=== PATIENT | male | born 1995 | race Caucasian/White ===

== ENCOUNTER 2021-09-27 22:27 | Emergency (ER) | payer OTHER ==
[~2021-09-27] VITALS: Ht 180.3 cm; Wt 72.6 kg
--- NOTE | 2021-09-27 23:09 | NUR ---
Dr Vogel at bedside, MSE in progress.
[2021-09-27 23:32] LABS: HEMATOCRIT 38.4 % (36.7-47.1); MEAN CORPUSCULAR HEMOGLOBIN 27.7 uug (23.8-33.4); MEAN CORPUSCULAR VOLUME 80.9 fL (73.0-96.2); PLATELET COUNT (AUTO) 291 K/uL (152-348)
--- NOTE | 2021-09-28 00:26 | NUR ---
Patient discharged to home in stable condition. Written and verbal after care instructions given. Patient verbalizes understanding of instructions. Stressed follow up or return to ER for worsening s/s. pt ambulated with steady gait. denies pain. no SOB. no chest pain. AOx4
[2021-09-28 00:28] VITALS: BP 132/86
== END 2021-09-28 00:29 | disposition home or self-care (01) ==
LOC: ER 22:52
DX: F41.0 Panic disorder [episodic paroxysmal anxiety] (principal); R55 Syncope and collapse; I49.1 Atrial premature depolarization; F17.210 Nicotine dependence, cigarettes, uncomplicated
CPT/HCPCS: 36415; 83735; 85025; 93005; A4663